=== PATIENT | male | born 1955 | race Caucasian/White ===

== ENCOUNTER 2022-04-02 11:54 | Emergency (ER) | payer OTHER ==
--- OUTSIDE RECORDS SUMMARY | 2022-04-02 12:11 | XMS REPORT | Continuity of Care Document ---
:1955 Author Organization [facility] t Address [address] [place] [address] Care Team Providers Name Role Phone Foster Attending Clinician Unavailable Tee Hassan Attending Clinician Unavailable Problems This patient has no known problems. Allergies, Adverse Reactions, Alerts This patient has no known allergies or adverse reactions. Medications Ordered Filled Start Stop Current Ordering Indication Dosage Frequency Signature Comments Components Source Medication Medication Date Date Medication? Clinician (SIG) Name Name Coreg Coreg Yes Lashon as Common Foster directed [facility] Terazosin Terazosin Yes Lashon 1 capsule Common HCl HCl [facility] Lisinopril Lisinopril Yes Lashon 1 tablet Common [facility] Immunizations Ordered Immunization Filled Immunization Date Status Commen ts Source Name Name Flucelvax - single Flucelvax - single 2019-08-04 Completed [facility] dose syringe dose syringe 00:00:00 - [facility] Procedures This patient has no known procedures. Encounters Start End Encounter Admission Attending Care Care Encounter Source Date/Time Date/Time Type Type Clinicians Facility Department ID 2021-11-19 Outpatient SONNY Go [facility] [id number] Common 13:58:51 Lashon [id number] [facility] 2021-11-19 Outpatient SONNY Go [facility] [id number] Common 12:29:09 Lashon [id number] [facility] 2021-11-19 Outpatient Foster, STLMLC [facility] [id number] Common 11:33:34 Lashon [id number] [facility] 2021-11-19 Outpatient Hassan, STLMLC STLMLC [id number] Common 11:04:40 Ophelia [id number] [facility] 2021-11-19 Outpatient Hassan, STLMLC STLMLC [id number] Common 11:03:00 Ophelia [id number] [facility] 2021-11-19 Outpatient Hassan, STLMLC STLMLC [id number] Common 11:02:54 Ophelia [id number] [facility] 2021-08-25 2021-08-25 ambulatory STLMLC STLMLC [id number] Common 00:00:00 00:00:00 [facility] 2021-07-01 2021-07-01 Outpatient STLMLC STLMLC [id number] Common 00:00:00 00:00:00 [facility] 2020-11-29 2020-11-29 Outpatient STLMLC STLMLC [id number] Common 00:00:00 00:00:00 [facility] 2020-05-31 2020-05-31 [facility] [id number] Common 16:05:00 16:05:00 [facility] [address] [facility] 2020-05-31 2020-05-31 [facility] [id number] Common 09:00:00 09:00:00 [facility] [address] [facility] 2020-05-22 2020-05-22 [facility] [id number] Common 14:04:00 14:04:00 [facility] [address] [facility] 2020-05-22 2020-05-22 [facility] [id number] Common 08:29:00 08:29:00 [facility] [address] [facility] 2019-11-24 2019-11-24 [facility] [id number] Common 10:00:00 10:00:[address] [facility] 2019-11-21 2019-11-21 [facility] [id number] Common 15:59:00 15:59:[address] [facility] 2019-11-21 2019-11-21 [facility] [id number] Common 10:37:00 10:37:[address] [facility] 2019-11-17 2019-11-17 [facility] [id number] Common 10:20:00 10:20:[address] [facility] 2019-09-22 2019-09-22 [facility] [id number] Common 11:00:00 11:00:[address] [facility] 2019-09-12 2019-09-12 [facility] [id number] Common 17:10:00 17:10:[address] [facility] 2019-08-04 2019-08-04 [facility] [id number] Common 08:30:00 08:30:[address] [facility] 2019-07-07 2019-07-07 [facility] [id number] Common 11:30:00 11:30:[address] [facility] 2019-07-05 2019-07-05 [facility] [id number] Common 15:18:00 15:18:[address] [facility] 2019-07-04 2019-07-04 [facility] [id number] Common 14:57:00 14:57:[address] [facility] 2019-06-14 2019-06-14 [facility] [id number] Common 10:28:00 10:28:[address] [facility] 2019-06-13 2019-06-13 [facility] [id number] Common 11:55:00 11:55:[address] [facility] 2019-05-19 2019-05-19 [facility] [id number] Common 10:00:00 10:00:[address] [facility] 2019-02-07 2019-02-07 [facility] [id number] Common 16:50:00 16:50:[address] [facility] 2019-02-07 2019-02-07 [facility] [id number] Common 16:02:00 16:02:[address] [facility] 2019-02-06 2019-02-06 [facility] [id number] Common 16:45:00 16:45:[address] [facility] 2018-10-04 2018-10-04 [facility] [id number] Common 16:15:00 16:15:[address] [facility] 2018-09-09 2018-09-09 [facility] [id number] Common 13:28:00 13:28:[address] [facility] 2018-07-05 2018-07-05 [facility] [id number] Common 16:15:00 16:15:[address] [facility] Results This patient has no known results.
[2022-04-02 13:16] LABS: Absolute Lymphocytes (CBC) 1.3 K/uL (0.7-4.9); Hematocrit 30.1 % (39.6-49.0); Lymphocytes % 14.3 % (15.3-44.8); MPV 6.9 fL (7.6-11.3); RBC Red Blood Cell Count 3.13 M/uL (4.33-5.43)
[2022-04-02 13:24] LABS: Protime INR 1.1
[2022-04-02] MEDS ORDERED: NA CHLORIDE 0.9% 1,000 ML ONE ×3 (13:26→17:53)
[2022-04-02 13:31] LABS: Albumin 2.6 g/dL (3.4-5.0); Bilirubin Direct 0.2 mg/dL (0-0.2); Bilirubin Total 0.3 mg/dL (0.2-1.0); Potassium 3.6 mmol/L (3.5-5.1); Protein, Total 7.6 g/dL (6.4-8.2)
--- NOTE | 2022-04-02 14:28 | RAD REPORT ---
EXAM DESCRIPTION: CT - Stone Protocol - 04/02/2022 2:10 pm CLINICAL HISTORY: Abdominal pain. Acute nenal failure COMPARISON: None. TECHNIQUE: Computed axial tomography of the abdomen pelvis was obtained without oral or IV contrast. Lack of IV and oral contrast limits evaluation of solid organs, bowel, and vessels. Coronal reformat cathy images were obtained and reviewed. All CT scans are performed using dose optimization technique as appropriate and may include automated exposure control or mA/KV adjustment according to patient size. FINDINGS: A renal calculus is not seen. An ureteral calculus is not noted. A bladder calculus is not present. Fatty liver Spleen is borderline enlarged Pancreas and adrenals appear grossly normal Moderate to marked left hydronephrosis. Left renal cortical thinning. The left ureter is dilated to t he level of the bladder. Borderline right hydronephrosis. Right ureter is normal caliber. Bladder wall is thickened. A genitourinary calculus is not seen. Mild bladder distension There is no evidence of diverticulitis. The appendix appears normal Moderate right and small left inguinal hernias contain fat IMPRESSION: Negative for a genitourinary calculus Moderate to marked left hydronephrosis. Left hydroureter. Given the renal cortical thinning this may be a chronic finding for the patient. Borderline mild right hydronephrosis. Bladder wall thickening. This may indicate cystitis or perhaps a neurogenic bladder.
[2022-04-02 14:36] LABS: Troponin High Sensitivity 7.2 pg/mL (<58.9)
[2022-04-02] MEDS ORDERED: NA CHLORIDE 0.9% 250 ML ONE (14:36)
[2022-04-02 14:37] LABS: Magnesium 1.1 mg/dL (1.8-2.4)
[2022-04-02] MEDS ORDERED: CEFEPIME 1 GM/VIAL ONE (14:37)
--- NOTE | 2022-04-02 14:42 | RAD REPORT ---
EXAM DESCRIPTION: Eladia Single View04/02/2022 2:21 pm CLINICAL HISTORY: Abdominal pain COMPARISON: none FINDINGS: The lungs appear clear of acute infiltrate. The heart is normal size IMPRESSION: No acute abnormalities displayed
[2022-04-02 14:51] LABS: Urine Appearance TURBID (Clear); Urine Blood 3+ (Negative); Urine Glucose Negative (Negative); Urine Protein 3+ (Negative); Urine Urobilinogen 0.2 mg/dL (0.2-1.0)
[2022-04-02 14:53] LABS: Urine Color DK YELLOW (Yellow); Urine Microscopic Reflex ORDER UMIC
[2022-04-02 14:56] LABS: Urine Bacteria LOADED /HPF (NONE SEEN); Urine RBC >50 /HPF (NONE SEEN)
[2022-04-02] MEDS ORDERED: Magnesium Sulfate 2gm IVPB 2 G/50 ML BAG IV ONE (14:59)
[2022-04-02 15:10] LABS: Blood Morphology Comment NOT SEEN (NOT SEEN); Dohle Bodies PRESENT; Platelet Estimate ADEQ; Toxic Granulation PRESENT
[2022-04-02 15:19] LABS: Urine Bilirubin ND (Negative)
--- NOTE | 2022-04-02 15:44 | ER ---
Nurse's Notes [facility] Name: Castro Yi Age: 66 yrs Sex: Male : 1955 Arrival Date: 04/02/2022 Time: 11:58 Bed 18 Private MD: Ajit Gudino R Diagnosis: Acute kidney failure, unspecified;Severe sepsis with septic shock;Anemia, unspecified;Pyelonephritis acute;Gross hematuria Presentation: 04/02 12:12 Chief complaint: Patient states: Sent in by Dr. Gudino for abnormal lab results. Started ll1 feeling bad Wednesday. Has UTI he is taking antibiotics for since Wednesday. No fever. Coronavirus screen: Vaccine status: Patient reports receiving the 1st dose of the Covid vaccine. Client denies travel out of the [place] in the last 14 days. At this time, the client does not indicate any symptoms associated with coronavirus-19. Ebola Screen: Patient denies travel to an Ebola-affected area in the 21 days before illness onset. Initial Sepsis Screen: Does the patient meet any 2 criteria? HR > 90 bpm. No. Patient's initial sepsis screen is negative. Does the patient have a suspected source of infection? Yes: Dysuria/Frequency/Urgency/UTI. Risk Assessment: Do you want to hurt yourself or someone else? Patient reports no desire to harm self or others. Onset of symptoms was March 29, 2022. 12:12 Method Of Arrival: Ambulatory ll1 12:12 Acuity: AZAEL 3 ll1 Triage Assessment: 13:32 General: Appears in no apparent distress. Behavior is calm, cooperative. : Urine is cardona cloudy, Reports urinary frequency. Historical: - Allergies: 12:14 No Known Allergies; ll1 - PMHx: 12:14 Hypertensive disorder; ll1 - PSHx: 12:14 None; ll1 - Immunization history:: Client reports receiving the 1st dose of the Covid vaccine. - Social history:: Smoking status: Patient denies any tobacco usage or history of. Screenin:31 Abuse screen: Denies threats or abuse. Denies injuries from another. Nutritional cardona screening: No deficits noted. Tuberculosis screening: No symptoms or risk factors identified. Fall Risk None identified. Assessment: 13:31 Pain: Denies pain. cardona 19:31 General: Appears in no apparent distress. Behavior is cooperative. Neuro: No deficits sm5 noted. Barajas Agitation-Sedation Scale (RASS): 0 - Alert and Calm Level of Consciousness is awake, alert, obeys commands, Oriented to person, place, time, situation. Cardiovascular: No deficits noted. Capillary refill < 3 seconds Patient's skin is warm and dry. Respiratory: No deficits noted. Airway is patent Trachea midline Respiratory effort is even, unlabored. : Wolf in place Urine is fernando blood. 19:47 Reassessment: pt informed of low hemoglobin levels and that provider ordered a blood sm5 transfusion. pt refusing, stating he does not want any blood transfusions. Provider made aware.. 20:48 Reassessment: No changes from previously documented assessment. Patient and/or family sm5 updated on plan of care and expected duration. Pain level reassessed. 22:19 Reassessment: No changes from previously documented assessment. Patient is alert, sm5 oriented x 3, equal unlabored respirations, skin warm/dry/pink. Vital Signs: 12:12 BP 110 / 69; Pulse 107; Resp 18; Temp 97.3; Pulse Ox 97% ; Weight 74.84 kg; Height 5 ll1 ft. 8 in. (172.72 cm); Pain 0/10; 13:23 BP 67 / 45; Pulse 78; Resp 16; Pulse Ox 97% on R/A; cardona 16:23 BP 91 / 53; Pulse 81; Resp 17; Pulse Ox 95% on R/A; cardona 17:51 BP 86 / 51; Pulse 80; Resp 17; Pulse Ox 100% on R/A; cardona 19:00 BP 83 / 52; Pulse 82; Resp 18; Pulse Ox 99% on R/A; sm5 20:15 BP 100 / 60; Pulse 84; Resp 17; Pulse Ox 99% on R/A; sm5 20:53 BP 97 / 54 (auto/); mb4 22:00 BP 97 / 57; Pulse 83; Resp 19; Pulse Ox 98% on R/A; sm5 12:12 Body Mass Index 25.09 (74.84 kg, 172.72 cm) ll1 ED Course: 11:58 Patient arrived in ED. mr 11:58 Ajit Gudino MD is Private Physician. mr 12:09 [facility] cp 12:09 Reji Montalvo MD is Attending Physician. cp 12:14 Triage completed. ll1 12:15 Arm band placed on. ll1 12:51 Kim Mercado, DAWIT is Primary Nurse. cardona 13:31 Patient has correct armband on for positive identification. Bed in low position. cardona 13:31 No provider procedures requiring assistance completed. Inserted saline lock: 20 gauge cardona in left antecubital area, using aseptic technique. 14:11 CT Stone Protocol In Process Unspecified. EDMS 14:23 XRAY Chest (1 view) In Process Unspecified. EDMS 15:42 Jim Yuan MD is Hospitalizing Provider. cp 18:52 Hematocrit Sent. cardona 18:52 Hemoglobin Sent. cardona 19:40 Transfer initiated. Spoke with Laura at transfer center. mb4 20:11 [facility] transfer center contacted. Spoke to Alejandra. mb4 20:17 Alejandra called for Doc to Doc. mb4 21:27 Administrative approval from ALEJANDRA Greenwood for [facility]. mb4 22:35 Patient transferred, IV remains in place. sm5 Administered Medications: 13:22 Drug: NS 0.9% 1000 ml Route: IV; Rate: 1 bolus; Site: right antecubital; cardona 14:58 Drug: Cefepime 1 grams Route: IVPB; Rate: 200 ml/hr; Infused Over: 30 mins; Site: right cardona antecubital; 16:47 Follow up: IV Status: Completed infusion cardona 14:59 Drug: NS 0.9% (30 ml/kg) 30 ml/kg Route: IV; Rate: bolus; Site: right antecubital; cardona 16:47 Follow up: IV Status: Completed infusion cardona 16:47 Drug: Magnesium Sulfate 2 grams Route: IVPB; Infused Over: 2 hrs; Site: right cardona antecubital; 16:47 Follow up: IV Status: Completed infusion cardona 17:55 Drug: NS 0.9% 1000 ml Route: IV; Rate: 1000 ml; Site: left antecubital; cardona 18:52 Follow up: IV Status: Completed infusion cardona 19:26 Drug: Norepinephrine 0.1 mcg/kg/min Route: IV; Rate: calculated rate; Site: right sm5 femoral; Medication: 13:31 VIS not applicable for this client. cardona Outcome: 15:43 Decision to Hospitalize by Provider. cp 19:42 ER care complete, transfer ordered by MD. rodríguez 22:35 Transferred by ground EMS to [facility], Transfer form sm5 completed. X-rays sent w/ patient. 22:35 Condition: stable 22:35 Instructed on the need for transfer. 22:36 Patient left the ED. 5 Signatures: Dispatcher [employer] EDKY Bridget Anton mr Tito Allison PA PA cp Taylor Baltazar mb4 Valery Garcia RN RN 1 Christa Rubio RN RN 5 Au-StagerKim RN RN cardona
--- NOTE | 2022-04-02 15:44 | EDPHYS ---
Physician Documentation [facility] Name: Castro Yi Age: 66 yrs Sex: Male : 1955 Arrival Date: 04/02/2022 Time: 11:58 Bed 18 Private MD: Ajit Gudino R ED Physician Reji Montalvo HPI: 04/02 12:35 This 66 yrs old Male presents to ER via Ambulatory with complaints of Abnormal Lab cp Results. 12:35 The patient presents with urinary symptoms, dysuria, difficulty urinating. cp 12:35 Onset: The symptoms/episode began/occurred 4 day(s) ago. Associated signs and symptoms: cp Pertinent positives: dysuria, Pertinent negatives: abdominal pain, constipation, diarrhea, fever, vomiting. Patient reports he was seen by his primary physician, DR Gudino 2 days ago, prescribed Bactrim antibiotic for urinary tract infection and had blood work drawn. Results of blood work were abnormal and he was told to go to emergency department. Historical: - Allergies: 12:14 No Known Allergies; ll1 - PMHx: 12:14 Hypertensive disorder; ll1 - PSHx: 12:14 None; ll1 - Immunization history:: Client reports receiving the 1st dose of the Covid vaccine. - Social history:: Smoking status: Patient denies any tobacco usage or history of. ROS: 12:40 Constitutional: Negative for body aches, chills, fever, poor PO intake. cp 12:40 Eyes: Negative for injury, pain, redness, and discharge. cp 12:40 ENT: Negative for drainage from ear(s), ear pain, sore throat, difficulty swallowing, difficulty handling secretions. 12:40 Cardiovascular: Negative for chest pain, edema, palpitations. 12:40 Respiratory: Negative for cough, shortness of breath, wheezing. 12:40 Abdomen/GI: Negative for abdominal pain, vomiting, diarrhea, constipation. 12:40 Back: Positive for pain at rest. 12:40 : Positive for burning with urination, difficulty urinating, Negative for bladder incontinence, testicular pain 12:40 Neuro: Negative for altered mental status, headache, numbness, syncope, weakness. 12:40 All other systems are negative. Exam: 12:45 Constitutional: The patient appears in no acute distress, alert, awake, comfortable, cp non-diaphoretic, non-toxic, well developed, well nourished. 12:45 Head/Face: Normocephalic, atraumatic. cp 12:45 Eyes: Periorbital structures: appear normal, Conjunctiva: normal, no exudate, no injection, Sclera: no appreciated abnormality, Lids and lashes: appear normal, bilaterally. 12:45 ENT: External ear(s): are unremarkable, Nose: is normal, Mouth: Lips: moist, Oral mucosa: pink and intact, moist, Posterior pharynx: Airway: no evidence of obstruction, patent. 12:45 Neck: ROM/movement: is normal, is supple, without pain, no range of motions limitations. 12:45 Chest/axilla: Inspection: normal, Palpation: is normal, no crepitus, no tenderness. 12:45 Cardiovascular: Rate: tachycardic, Rhythm: regular, Edema: is not appreciated, JVD: is not appreciated. 12:45 Respiratory: the patient does not display signs of respiratory distress, Respirations: normal, no use of accessory muscles, no retractions, labored breathing, is not present, Breath sounds: are clear throughout, no decreased breath sounds, no stridor, no wheezing. 12:45 Abdomen/GI: Inspection: abdomen appears normal, Bowel sounds: active, all quadrants, Palpation: abdomen is soft and non-tender, in all quadrants, rebound tenderness, is not appreciated, involuntary guarding, is not appreciated. 12:45 Back: pain, that is mild, ROM is normal. 12:45 Skin: cellulitis, is not appreciated, no rash present. 12:45 Neuro: Orientation: to person, place \\T\\ time. Mentation: is normal, Cerebellar function: is grossly normal, Motor: moves all fours, strength is normal, Sensation: is normal, Gait: is steady, at a normal pace, without difficulty. 13:15 ECG was reviewed by the Attending Physician. cp Vital Signs: 12:12 BP 110 / 69; Pulse 107; Resp 18; Temp 97.3; Pulse Ox 97% ; Weight 74.84 kg; Height 5 ll1 ft. 8 in. (172.72 cm); Pain 0/10; 13:23 BP 67 / 45; Pulse 78; Resp 16; Pulse Ox 97% on R/A; cardona 16:23 BP 91 / 53; Pulse 81; Resp 17; Pulse Ox 95% on R/A; cardona 17:51 BP 86 / 51; Pulse 80; Resp 17; Pulse Ox 100% on R/A; cardona 19:00 BP 83 / 52; Pulse 82; Resp 18; Pulse Ox 99% on R/A; sm5 20:15 BP 100 / 60; Pulse 84; Resp 17; Pulse Ox 99% on R/A; sm5 20:53 BP 97 / 54 (auto/); mb4 22:00 BP 97 / 57; Pulse 83; Resp 19; Pulse Ox 98% on R/A; sm5 12:12 Body Mass Index 25.09 (74.84 kg, 172.72 cm) ll1 Procedures: 19:01 Central Line: the site was prepped with Betadine, in sterile fashion, a triple lumen cp catheter was inserted, in the right femoral vein, in 1 attempts. placement was verified, by blood return, the site was dressed with using sterile technique, the patient tolerated the procedure, well. MDM: 12:20 Patient medically screened. cp 14:45 Post IV fluid administration reassessment for Sepsis: Client prescribed 30 mL/kg IVF. cp Focused Assessment performed: April 02, 2022 at 14:45 Heart: Regular rate/rhythm noted. Lungs: Noted to be clear bilaterally. Skin examination performed. Skin noted to have normal turgor. Current vital signs reviewed: Yes. Neuro: no change Cardio: Cardiovascular examination improved from previous exam. Heart rate and blood pressure have improved. mild Respiratory: no change Other: sepsis reevaluation complete. initial lactate wnl, no repeat required. 15:07 Physician consultation: Jim Yuan MD was called at 15:05, was contacted at 15:05. cp 15:13 Physician consultation: Seb Silver MD was called at 15:13, was contacted at 15:13, cp regarding patient's condition, will be available for consult today to discuss patient care. 19:00 Physician consultation: Xu Arciniega was contacted at 19:00, regarding patient's cp condition, after a discussion of the case, a recommendation for transfer for higher level of care is made, due to ongoing gross hematuria and DR Silver, urologist, will not be available for consultation after today to assist with patient care. Will initiate transfer to [facility]. 19:30 ED course: Discussed with patient need for blood transfusion due to drop in hemoglobin cp from 10.3 to 8.9, continued gross hematuria and hypotension that did not respond to IV fluids. 19:30 Data reviewed: vital signs, nurses notes, lab test result(s), EKG, radiologic studies, cp CT scan. Refusal of service: The patient/guardian displays adequate decision making capability and despite a detailed discussion of alternatives, benefits, risks, and consequences refuses: blood transfusion by patient due to christian reasons. 19:50 ED course: Patient requests transfer to [facility] if available. 20:24 Physician consultation: was contacted at 20:24, regarding regarding transfer, to [facility]. cp patient's condition, accepting physician will be DR Kevin. 04/02 12:31 Order name: Basic Metabolic Panel; Complete Time: 13:33 04/02 13:33 Interpretation: Normal except: NA 126; CL 92; CO2 15; ANION GAP 22.6; BUN 74; CRE 7.94; cp GFR 7. 04/02 12:31 Order name: CBC with Diff; Complete Time: 17:37 04/02 14:59 Interpretation: Normal except: RBC 3.13; HGB 10.3; HCT 30.1; MPV 6.9; PLT 132; LYM% cp 14.3; MNA 2.4; MN% 26.4. 04/02 12:31 Order name: LFT's; Complete Time: 13:33 04/02 12:31 Order name: PT-INR; Complete Time: 13:33 04/02 13:19 Order name: Manual Differential; Complete Time: 17:37 EDMS 04/02 17:38 Interpretation: Normal except: BANDS [F] 8; MONO 20; MYELO 2; META 4. 04/02 13:36 Order name: Blood Culture Adult (2) 04/02 13:36 Order name: Lactate; Complete Time: 14:44 04/02 13:36 Order name: BNP; Complete Time: 14:44 04/02 14:44 Interpretation: Abnormal: NT PRO-BNP 5062. 04/02 13:36 Order name: Procalcitonin; Complete Time: 15:08 04/02 13:36 Order name: Magnesium; Complete Time: 14:44 04/02 14:44 Interpretation: Abnormal: MG 1.1. 04/02 13:37 Order name: Troponin High Sensitivity; Complete Time: 14:44 cp 04/02 13:54 Order name: COVID-19 SARS RT PCR (Document "Date of Onset" if Symptomatic); Complete cp Time: 17:37 04/02 14:51 Order name: Urinalysis; Complete Time: 17:37 EDMS / 12:31 Order name: EKG; Complete Time: 12:32 cp / 12:31 Order name: Cardiac monitoring; Complete Time: 12:51 cp 04/02 12:31 Order name: EKG - Nurse/Tech; Complete Time: 13:17 cp / 12:31 Order name: IV Saline Lock; Complete Time: 12:51 cp / 13:36 Order name: XRAY Chest (1 view); Complete Time: 14:44 cp 04/02 13:36 Order name: CT Stone Protocol; Complete Time: 14:44 04/02 14:45 Interpretation: Report reviewed. 04/02 14:56 Order name: Urine Microscopic Only; Complete Time: 17:37 EDMS 04/02 15:05 Interpretation: Reviewed. 04/02 14:58 Order name: Urine Culture EDSD 04/02 17:37 Order name: Hemoglobin; Complete Time: 19:22 / 19:22 Interpretation: Abnormal: HGB 8.9. / 17:37 Order name: Hematocrit; Complete Time: 19:22 04/02 19:22 Interpretation: Abnormal: HCT 25.7. 04/02 12:31 Order name: Labs collected and sent; Complete Time: 12:51 04/02 12:31 Order name: O2 Per Protocol; Complete Time: 12:51 04/02 12:31 Order name: O2 Sat Monitoring; Complete Time: 12:51 04/02 18:01 Order name: Misc. Order: consent for central line placement; Complete Time: 18:52 ss EC:15 Rate is 78 beats/min. Rhythm is regular. MT interval is normal. QRS interval is normal. cp QT interval is normal. T waves are Inverted in lead aVR. Interpreted by me. Reviewed by me. Administered Medications: 13:22 Drug: NS 0.9% 1000 ml Route: IV; Rate: 1 bolus; Site: right antecubital; cardona 14:58 Drug: Cefepime 1 grams Route: IVPB; Rate: 200 ml/hr; Infused Over: 30 mins; Site: right cardona antecubital; 16:47 Follow up: IV Status: Completed infusion cardona 14:59 Drug: NS 0.9% (30 ml/kg) 30 ml/kg Route: IV; Rate: bolus; Site: right antecubital; cardona 16:47 Follow up: IV Status: Completed infusion cardona 16:47 Drug: Magnesium Sulfate 2 grams Route: IVPB; Infused Over: 2 hrs; Site: right cardona antecubital; 16:47 Follow up: IV Status: Completed infusion cardona 17:55 Drug: NS 0.9% 1000 ml Route: IV; Rate: 1000 ml; Site: left antecubital; cardona 18:52 Follow up: IV Status: Completed infusion cardona 19:26 Drug: Norepinephrine 0.1 mcg/kg/min Route: IV; Rate: calculated rate; Site: right sm5 femoral; Disposition: 17:15 Attestation: The patient's history, exam findings, diagnostics, and a summary of any [facility] interventions or procedures was reviewed in detail with Tito LANCASTER. Disposition Summary: 04/02/22 19:42 Transfer Ordered Transfer Location: [facility] cp Reason: Higher level of care cp Condition: Serious(04/02/22 19:42) cp Problem: new(04/02/22 19:42) cp Symptoms: have improved(04/02/22 19:42) cp Accepting Physician: DR Kevin(04/02/22 22:36) sm5 Diagnosis - Acute kidney failure, unspecified(04/02/22 19:42) cp - Severe sepsis with septic shock(04/02/22 20:26) cp - Anemia, unspecified cp - Pyelonephritis acute(04/02/22 20:26) cp - Gross hematuria cp Forms: - Medication Reconciliation Form cp - SBAR form cp Signatures: Dispatcher [employer] Delores Hernandez RN RN ss Page, Corey, PA PA cp Yamile Mejía Lynsay, RN RN ll1 Christa Rubio RN RN sm5 Kim Mercado RN RN ha Rosillo, Jose, MD MD [id number] Corrections: (The following items were deleted from the chart) 14:55 12:32 UA MICROSCOPIC+U.LAB.BRZ ordered. EDMS EDMS 14:59 14:23 Normal except: RBC 3.13; HGB 10.3; HCT 30.1; MPV 6.9; PLT 132; LYM% 14.3. cp cp 14:59 14:59 Normal except: RBC 3.13; HGB 10.3; HCT 30.1; MPV 6.9; PLT 132; LYM% 14.3; MNA cp 2.4. cp 15:57 15:43 Telemetry/MedSurg (Inpatient) cp eb 15:57 15:43 cp eb 19:27 14:45 Post IV fluid administration reassessment for Sepsis: Client prescribed 30 mL/kg cp IVF. Focused Assessment performed: April 02, 2022 at 14:45 Heart: Regular rate/rhythm noted. Lungs: Noted to be clear bilaterally. Skin examination performed. Skin noted to have normal turgor. Current vital signs reviewed: Yes. Neuro: no change Cardio: Cardiovascular examination improved from previous exam. Heart rate and blood pressure have improved. mild Respiratory: no change cp 19:42 15:43 Inpatient Admission cp cp 19:42 15:43 Jim Yuan cp cp 19:42 15:43 Serious cp cp 19:42 15:43 new cp cp 19:42 15:43 have improved cp cp 19:42 15:43 Standard cp cp 19:42 15:43 Acute kidney failure, unspecified cp cp 19:42 15:43 Severe sepsis with septic shock cp cp 19:42 15:43 Pyelonephritis acute cp cp 19:42 15:57 [facility] ER HOLD eb cp 19:42 15:57 ERHOLD- eb cp 20:26 19:42 doctor cp cp 22:36 20:26 DR Kevin cp sm5 04/03 14:02 04/02 19:00 Physician consultation: Xu Arciniega was contacted at 19:00, regarding cp patient's condition, after a discussion of the case, a recommendation for transfer for higher level of care is made, due to ongoing gross hematuria and DR Silver, urologist, will not be available for consultation after today to assist with patient care, cp
[2022-04-02 19:11] LABS: Hematocrit 25.7 % (39.6-49.0)
[2022-04-02] MEDS ORDERED: NOREPINEPHRINE 4mg/D5W 250mL 4 MG/250 ML BAG IV ONE (19:16)
[2022-04-02 22:46] VITALS: TEMP 97.3
[2022-04-02 22:56] VITALS: BP 97/57; O2SAT 98
--- NOTE | 2022-04-03 10:59 | EKG ---
Test Date: 2022-04-02 Test Time: 13:10:58 Music Typographer: MING MEASUREMENT RESULTS: Intervals: Rate: 78 FL: 168 QRSD: 72 QT: 394 QTc: 449 [place]: P: 39 FL: 168 QRS: 47 T: 29 INTERPRETIVE STATEMENTS: Sinus rhythm with premature atrial complexes with aberrant conduction Otherwise normal ECG No previous ECG available for comparison Electronically Signed On 04-03-22 10:58:31 CDT by Panchito Ford
== END 2022-04-02 22:36 | disposition short-term general hospital (02) ==
LOC: ER 11:54
PROC: 06HM33Z Insertion of Infusion Device into Right Femoral Vein, Percutaneous Approach (ICD-10-PCS; principal; 2022-04-02)
DX: N17.9 Acute kidney failure, unspecified (principal); N10 Acute pyelonephritis; R65.21 Severe sepsis with septic shock; D64.9 Anemia, unspecified; R31.0 Gross hematuria; I10 Essential (primary) hypertension; Z53.1 Procedure and treatment not carried out because of patient's decision for reasons of belief and group pressure; Z20.822 Contact with and (suspected) exposure to COVID-19
CPT/HCPCS: 93005; 87040 ×2; 85025; 87086; 80048; 36415; 83735; 87205; 85610; 80076; 83605; 85018; 85014; 84484; 84145; 83880; 76377; 74176; 71045; 99285; 36556; U0003; J3475; J7050; J7030 ×3; J0692; 81003; 81015; 87088